=== PATIENT | male | born 1960 | race African-American/Black ===

== ENCOUNTER 2018-11-04 10:13 | Emergency (ER) | payer OTHER ==
[~2018-11-04] VITALS: Ht 180.3 cm; Wt 104.3 kg
[2018-11-04] MEDS ORDERED: MOBIC15 MG PO (11:21)
[2018-11-04 11:42] VITALS: BP 125/93
== END 2018-11-04 11:43 | disposition home or self-care (01) ==
LOC: ER 10:13
DX: S80.01XA Contusion of right knee, initial encounter (principal); S00.03XA Contusion of scalp, initial encounter; F17.210 Nicotine dependence, cigarettes, uncomplicated; Z88.2 Allergy status to sulfonamides; V89.2XXA Person injured in unspecified motor-vehicle accident, traffic, initial encounter; Y92.89 Other specified places as the place of occurrence of the external cause; Y93.89 Activity, other specified; Y99.8 Other external cause status

== ENCOUNTER 2021-11-21 11:31 | Emergency (ER) | payer OTHER ==
[~2021-11-21] VITALS: Ht 154.9 cm; Wt 102.1 kg
[~2021-11-21 11:31] MED LIST: MOBIC15 MG PO
[2021-11-21] MEDS ORDERED: TAMSULOSIN HCL0.4 MG PO (11:38)
[2021-11-21] MEDS ORDERED: NEURONTIN 300M300 M2 PO (11:38)
[2021-11-21 12:01] LABS: ABSOLUTE NEUTROPHILS 6.6 thou/uL (1.4-8.2); BASOPHILS 0.6 % (0.0-2.0); HEMATOCRIT 37.3 % (42.0-52.0); HEMOGLOBIN 12.6 gm/dL (14.0-18.0); LYMPHOCYTES 23.1 % (24.0-44.0); MCH 30.2 pg (26.0-34.0); MCHC 33.7 g/dL (28.0-37.0); MCV 89.5 fL (80.0-100.0); MONOCYTES 7.8 % (1.0-8.0); PLATELET COUNT 196 thou/uL (150-400); POLYS 67.5 % (36.0-66.0); RBC 4.17 mil/uL (4.50-6.00); RDW 13.3 % (10.5-14.5); WBC 9.8 thou/uL (4.0-11.0)
[2021-11-21 12:13] LABS: ANION GAP 8 mmol/L (7-16); BUN 16 mg/dL (7-18); CALCIUM 8.8 mg/dL (8.5-10.1); CHLORIDE 97 mmol/L (98-107); CO2 29 mmol/L (21-32); CREATININE 1.2 mg/dL (0.7-1.3); GLUCOSE 112 mg/dL (74-106); POTASSIUM 4.3 mmol/L (3.5-5.1); SODIUM 134 mmol/L (136-145)
[2021-11-21 12:17] LABS: ALBUMIN 3.8 g/dL (3.4-5.0); SALICYLATE 3.1 mg/dL (2.8-20.0); SGOT 19 U/L (15-37); SGPT 29 U/L (16-63); TOTAL BILIRUBIN 0.3 mg/dL (0.2-1.0); TOTAL PROTEIN 7.5 g/dL (6.4-8.2)
[2021-11-21 13:48] LABS: URINE BILIRUBIN NEGATIVE (Negative); URINE BLOOD NEGATIVE (Negative); URINE CLARITY CLEAR; URINE COLOR YELLOW; URINE GLUCOSE-RANDOM* NEGATIVE (Negative); URINE KETONES NEGATIVE (Negative); URINE LEUKOCYTES-REFLEX NEGATIVE (Negative); URINE NITRITE-REFLEX NEGATIVE (Negative); URINE PROTEIN (DIPSTICK) NEGATIVE (Negative); URINE UROBILINOGEN 0.2 E.U./dl (0.2-1.0)
[2021-11-21 13:57] LABS: AMP/METHAMP Negative (Negative); BARBITURATES Negative (Negative); BENZODIAZEPINES POSITIVE (Negative); COCAINE Negative (Negative); METHADONE Negative (Negative); OPIATES POSITIVE (Negative); PCP Negative (Negative)
[2021-11-21 14:09] VITALS: BP 137/88
--- NOTE | 2021-11-21 20:38 | EKG ---
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 11/21/212036 1202 1202 Ebenezer Nath MD, FACC /EPI
== END 2021-11-21 14:17 | disposition home or self-care (01) ==
LOC: ER 11:31
PROVIDERS: Nurse Practitioner
DX: F19.129 Other psychoactive substance abuse with intoxication, unspecified (principal); Z20.822 Contact with and (suspected) exposure to COVID-19; J44.9 Chronic obstructive pulmonary disease, unspecified; F17.210 Nicotine dependence, cigarettes, uncomplicated; Z79.899 Other long term (current) drug therapy; Z88.2 Allergy status to sulfonamides